=== PATIENT | male | born 1990 | race Caucasian/White ===

== ENCOUNTER 2017-12-29 16:33 | Emergency (ER) | payer OTHER ==
[~2017-12-29] VITALS: Ht 172.7 cm; Wt 73.9 kg
[2017-12-29 16:39] VITALS: Ht 172.7 cm; Wt 73.9 kg
[2017-12-29 17:22] VITALS: BP 147/88
== END 2017-12-29 17:23 | disposition home or self-care (01) ==
LOC: ED 16:33
DX: S63.501A Unspecified sprain of right wrist, initial encounter (principal); W19.XXXA Unspecified fall, initial encounter; Y93.89 Activity, other specified; Y92.89 Other specified places as the place of occurrence of the external cause; Y99.8 Other external cause status